=== PATIENT | male | born 1975 | race African-American/Black ===

== ENCOUNTER → 2018-03-25 | Outpatient (CLI) | payer OTHER ==
[2015-08-31 07:59] VITALS: BP 120/76
[~2018-03-25] VITALS: Ht 162.6 cm; Wt 108.9 kg
[~2018-03-25] MED LIST: CELE100C PO; GABA-586 PO; NORMAL SALINE IV ONE; SINCALIDE IV ONE
--- NOTE | 2018-03-25 15:47 | RAD ---
HEPATOBILIARY SCAN WITH EJECTION FRACTION 03/25/2018 3:44 PM History: upper Abd pain x 4 months 5.5mci 99mTc Choletec 2.18mCg Kinevac for EF Procedure: Serial static images are obtained of the liver and biliary system in the frontal projection following IV administration of 5.5 mCi of Technetium 99m Choletec. After filling of the gallbladder, 2.18 mcg of sincalide were infused over 30 minutes and dynamic imaging continued over this period. The gallbladder ejection fraction was calculated. Findings: There is prompt hepatic clearance of tracer from the blood pool. There is homogeneous distribution throughout the liver. The gallbladder ejection fraction measures 55% (normal gallbladder EF is 35% or greater). IMPRESSION: 1. The cystic duct and common bile duct are patent. Negative for acute cholecystitis. 2. The gallbladder ejection fraction is within normal limits Electronically signed by: Barry Carias MD (03/25/2018 3:44 PM) [facility]
== END | disposition home or self-care (01) ==
LOC: NM 07:55
PROVIDERS: ATTEND Internal Medicine Gastroenterology
DX: R10.13 Epigastric pain (principal)
CPT/HCPCS: 78226; 96374; 96375; A9537; J2805

== ENCOUNTER 2019-01-08 23:52 | Emergency (ER) | payer OTHER ==
[~2019-01-08] VITALS: Ht 162.6 cm; Wt 115.0 kg
[~2019-01-08 23:52] MED LIST changes: -NORMAL SALINE IV ONE; -SINCALIDE IV ONE
--- NOTE | 2019-01-08 23:58 | ED.ADGEN ---
Past History Past Medical History: Arthritis, Other Past Surgical History: Other Alcohol Use: None Drug Use: None Adult General Chief Complaint Chief Complaint ".. The pain.. It mariya started yesterday.. but it been in my neck, into my Lt Trapezius.. shoulder and down into my Lt arm.. 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 Pain is somewhat neuropathic. Patient denies any neck injury. 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 No recent travel. Was in [place] approximately 6 weeks ago. Patient denies any prior cardiac history. Patient does not smoke. No history of Immunosuppression. Patient tried [id number] and did take his gabapentin attempts to relieve the pain. Patient does have a history of chronic low back pain. 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 Review of Systems Review of Systems Constitutional: Denies fever or chills [] Eyes: Denies change in visual acuity, redness, or eye pain [] HENT: Denies nasal congestion or sore throat []complains of neck pain Respiratory: Denies cough or shortness of breath [] Cardiovascular: No additional information not addressed in HPI [] GI: Denies abdominal pain, nausea, vomiting, bloody stools or diarrhea [] : Denies dysuria or hematuria [] Musculoskeletal: History of low back pain or joint pain [. Patient]complains of left shoulder and arm pain Integument: Denies rash or skin lesions [] Neurologic: Denies headache, focal weakness or sensory changes [] Endocrine: Denies polyuria or polydipsia [] All other systems were reviewed and found to be within normal limits, except as documented in this note. Family History Family History Noncontributory to presentation Current Medications Current Medications Current Medications Medications (Trade) Dose Ordered Sig/Hoa Start Time Stop Time Status Last Admin Dose Admin Ketorolac Tromethamine (Toradol 30mg Vial) 30 mg 1X ONCE 01/09/19 00:30 01/09/19 00:32 DC 01/09/19 00:47 30 MG Lactated Ringer's 1,000 ml @ 1,000 mls/hr Q1H 01/09/19 00:30 01/09/19 01:29 DC 01/09/19 00:47 1,000 MLS/HR Methylprednisolone Acetate (DEPO-Medrol IM) 40 mg 1X ONCE 01/09/19 00:30 01/09/19 00:32 DC 01/09/19 00:48 40 MG Morphine Sulfate (Morphine 10mg Syringe) 10 mg 1X ONCE 01/09/19 02:30 01/09/19 02:31 DC 01/09/19 02:19 10 MG Orphenadrine Citrate (Norflex) 60 mg 1X ONCE 01/09/19 00:30 01/09/19 00:32 DC 01/09/19 00:47 60 MG See nursing for home meds Allergies Allergies Allergies Coded Allergies Type Severity Reaction Last Updated Verified propoxyphene Allergy Severe Rash 01/09/19 Yes Physical Exam Physical Exam Constitutional: Well developed, well nourished, moderately acute distress, non- toxic appearance. [] HENT: Normocephalic, atraumatic, bilateral external ears normal, oropharynx moist, no oral exudates, nose normal. [] Eyes: PERRLA, EOMI, conjunctiva normal, no discharge. [] Neck: Normal range of motion, no tenderness, supple, no stridor. [] Has appreciable trapezius spasm on left. Cardiovascular: Bradycardia Heart rate regular rhythm, no murmur [] Lungs & Thorax: Bilateral breath sounds equal apex auscultation [] Abdomen: Bowel sounds normal, soft, no tenderness, no masses, no pulsatile masses. [] Skin: Warm, dry, no erythema, no rash. [] Back: No tenderness, no CVA tenderness. [] Extremities: No tenderness, no cyanosis, no clubbing, ROM intact, no edema. [] No cording appreciated. Neurologic: Alert and oriented X 3, normal motor function, normal sensory function, no focal deficits noted. [] Psychologic: Affect normal, judgement normal, mood normal. [] Current Patient Data Vital Signs Vital Signs Date Time Temp Pulse Resp B/P (MAP) Pulse Ox O2 Delivery O2 Flow Rate FiO2 01/09/19 02:15 98.4 68 16 135/80 (98) 97 Room Air Lab Results Laboratory Tests Test 01/09/19 00:45 01/09/19 02:00 White Blood Count 5.9 x10^3/uL (4.0-11.0) Red Blood Count 5.13 x10^6/uL (4.30-5.70) Hemoglobin 16.3 g/dL (13.0-17.5) Hematocrit 47.7 % (39.0-53.0) Mean Corpuscular Volume 93 fL (79-100) Mean Corpuscular Hemoglobin 32 pg (25-35) Mean Corpuscular Hemoglobin Concent 34 g/dL (31-37) Red Cell Distribution Width 13.4 % (11.5-14.5) Platelet Count 229 x10^3/uL (140-400) Neutrophils (%) (Auto) 37 % (31-73) Lymphocytes (%) (Auto) 50 % (24-48) H Monocytes (%) (Auto) 11 % (0-9) H Eosinophils (%) (Auto) 2 % (0-3) Basophils (%) (Auto) 1 % (0-3) Neutrophils # (Auto) 2.2 x10^3uL (1.8-7.7) Lymphocytes # (Auto) 2.9 x10^3/uL (1.0-4.8) Monocytes # (Auto) 0.6 x10^3/uL (0.0-1.1) Eosinophils # (Auto) 0.1 x10^3/uL (0.0-0.7) Basophils # (Auto) 0.0 x10^3/uL (0.0-0.2) Erythrocyte Sedimentation Rate 1 (0-15) Prothrombin Time 9.7 SEC (9.4-11.4) Prothrombin Time INR 1.0 (0.9-1.1) PTT 26 SEC (23-33) D-Dimer (Kamala) < 0.19 mg/L (0.00-0.50) Sodium Level 140 mmol/L (136-145) Potassium Level 3.9 mmol/L (3.5-5.1) Chloride Level 105 mmol/L (98-107) Carbon Dioxide Level 28 mmol/L (21-32) Anion Gap 7 (6-14) Blood Urea Nitrogen 15 mg/dL (8-26) Creatinine 1.1 mg/dL (0.7-1.3) Estimated GFR (Cockcroft-Gault) 87.6 Glucose Level 104 mg/dL (70-99) H Calcium Level 8.9 mg/dL (8.5-10.1) Magnesium Level 1.7 mg/dL (1.8-2.4) L Total Bilirubin 0.4 mg/dL (0.2-1.0) Direct Bilirubin 0.1 mg/dL (0.0-0.2) Aspartate Amino Transferase (AST) 26 U/L (15-37) Alanine Aminotransferase (ALT) 53 U/L (16-63) Alkaline Phosphatase 86 U/L (46-116) Creatine Kinase 351 U/L (39-308) H Troponin I Quantitative < 0.017 ng/mL (0-0.055) EX-Tez-O-Type Natriuretic Peptide < 5 pg/mL (0-124) Total Protein 7.5 g/dL (6.4-8.2) Albumin 3.6 g/dL (3.4-5.0) Urine Collection Type Unknown Urine Color Yellow Urine Clarity Clear Urine pH 6.5 Urine Specific Sublimity 1.020 Urine Protein Neg (NEG-TRACE) Urine Glucose (UA) Neg mg/dL (NEG) Urine Ketones (Stick) Neg mg/dL (NEG) Urine Blood Neg (NEG) Urine Nitrite Neg (NEG) Urine Bilirubin Neg (NEG) Urine Urobilinogen Dipstick 0.2 mg/dL (0.2 mg/dL) Urine Leukocyte Esterase Neg (NEG) Urine RBC 0 /HPF (0-2) Urine WBC Occ /HPF (0-4) Urine Squamous Epithelial Cells Few /LPF Urine Bacteria 0 /HPF (0-FEW) EKG EKG My interpretation of EKG shows a sinus bradycardia rhythm at 58 bpm[] has slightly prolonged CA interval. Some nonspecific anterior lateral changes. No findings acute STEMI with contralateral changes. Radiology/Procedures Radiology/Procedures My interpretation chest x-ray shows borderline cardiac silhouette. There is some hilar fullness. Atelectasis.[][address] [address] IMAGING REPORT Signed PATIENT: SAMEERA WOODY ACCOUNT: [id number] : 1975 LOCATION: ER AGE: 43 SEX: M EXAM STATUS: REG ER ORD. PHYSICIAN: VIRAL SPEARS MD REASON: Neuropathic like pain, neck , Lt. shoulder and arm PROCEDURE: CT CERVICAL SPINE WO CONTRAST PQRS Compliance Statement: One or more of the following individualized dose reduction techniques were utilized for this examination: 1. Automated exposure control 2. Adjustment of the mA and/or kV according to patient size 3. Use of iterative reconstruction technique CT CERVICAL SPINE WITHOUT CONTRAST Clinical Indication: Neuropathic-like pain, neck, left shoulder and arm. Comparison: None. Technique: Noncontrast helical CT of the cervical spine was performed. Axial, sagittal, and coronal reconstructions were obtained. Findings: There is no evidence of acute fracture or acute malalignment. There are no perched or jumped facet joints. The vertebral body height and alignment are maintained. Straightening of normal cervical lordosis may be positional or due to muscle spasm. There is degenerative endplate spurring of C4/C5, C5/C6, C6/C7. Mild disc space narrowing at these levels. The craniovertebral junction is intact. No high-grade central canal stenosis is identified. Neural foraminal narrowing bilaterally at C6/C7 is probably moderate. Visualized soft tissues of the neck demonstrate no significant abnormalities. The visualized lung apices are clear. IMPRESSION: No acute fracture or malalignment. Electronically signed by: Frandy Triana MD (01/09/2019 1:35 AM) [facility] Course & Med Decision Making Course & Med Decision Making Pertinent Labs and Imaging studies reviewed. (See chart for details) [] Final Impression Final Impression 1. Cervical neuropathy[] 2. Elevate Lymph and O'Brien 50/11 3. Cervical Muscle spasms 4. DJD Dragon Disclaimer Dragon Disclaimer This electronic medical record was generated, in whole or in part, using a voice recognition dictation system. Discharge Summary Visit Information Final Diagnosis Problems Medical Problems: (1) Cervical neuropathy Status: Acute Brief Hospital Course Allergies Allergies Coded Allergies Type Severity Reaction Last Updated Verified propoxyphene Allergy Severe Rash 01/09/19 Yes Vital Signs Vital Signs Date Time Temp Pulse Resp B/P (MAP) Pulse Ox O2 Delivery O2 Flow Rate FiO2 01/09/19 02:15 98.4 68 16 135/80 (98) 97 Room Air Lab Results Laboratory Tests Test 01/09/19 00:45 01/09/19 02:00 White Blood Count 5.9 x10^3/uL (4.0-11.0) Red Blood Count 5.13 x10^6/uL (4.30-5.70) Hemoglobin 16.3 g/dL (13.0-17.5) Hematocrit 47.7 % (39.0-53.0) Mean Corpuscular Volume 93 fL (79-100) Mean Corpuscular Hemoglobin 32 pg (25-35) Mean Corpuscular Hemoglobin Concent 34 g/dL (31-37) Red Cell Distribution Width 13.4 % (11.5-14.5) Platelet Count 229 x10^3/uL (140-400) Neutrophils (%) (Auto) 37 % (31-73) Lymphocytes (%) (Auto) 50 % (24-48) Monocytes (%) (Auto) 11 % (0-9) Eosinophils (%) (Auto) 2 % (0-3) Basophils (%) (Auto) 1 % (0-3) Neutrophils # (Auto) 2.2 x10^3uL (1.8-7.7) Lymphocytes # (Auto) 2.9 x10^3/uL (1.0-4.8) Monocytes # (Auto) 0.6 x10^3/uL (0.0-1.1) Eosinophils # (Auto) 0.1 x10^3/uL (0.0-0.7) Basophils # (Auto) 0.0 x10^3/uL (0.0-0.2) Erythrocyte Sedimentation Rate 1 (0-15) Prothrombin Time 9.7 SEC (9.4-11.4) Prothromb Time International Ratio 1.0 (0.9-1.1) Activated Partial Thromboplast Time 26 SEC (23-33) D-Dimer (Kamala) < 0.19 mg/L (0.00-0.50) Sodium Level 140 mmol/L (136-145) Potassium Level 3.9 mmol/L (3.5-5.1) Chloride Level 105 mmol/L (98-107) Carbon Dioxide Level 28 mmol/L (21-32) Anion Gap 7 (6-14) Blood Urea Nitrogen 15 mg/dL (8-26) Creatinine 1.1 mg/dL (0.7-1.3) Estimated GFR (Cockcroft-Gault) 87.6 Glucose Level 104 mg/dL (70-99) Calcium Level 8.9 mg/dL (8.5-10.1) Magnesium Level 1.7 mg/dL (1.8-2.4) Total Bilirubin 0.4 mg/dL (0.2-1.0) Direct Bilirubin 0.1 mg/dL (0.0-0.2) Aspartate Amino Transf (AST/SGOT) 26 U/L (15-37) Alanine Aminotransferase (ALT/SGPT) 53 U/L (16-63) Alkaline Phosphatase 86 U/L (46-116) Creatine Kinase 351 U/L (39-308) Troponin I Quantitative < 0.017 ng/mL (0-0.055) OQ-Cfg-C-Type Natriuretic Peptide < 5 pg/mL (0-124) Total Protein 7.5 g/dL (6.4-8.2) Albumin 3.6 g/dL (3.4-5.0) Urine Collection Type Unknown Urine Color Yellow Urine Clarity Clear Urine pH 6.5 Urine Specific Sublimity 1.020 Urine Protein Neg (NEG-TRACE) Urine Glucose (UA) Neg mg/dL (NEG) Urine Ketones (Stick) Neg mg/dL (NEG) Urine Blood Neg (NEG) Urine Nitrite Neg (NEG) Urine Bilirubin Neg (NEG) Urine Urobilinogen Dipstick 0.2 mg/dL (0.2 mg/dL) Urine Leukocyte Esterase Neg (NEG) Urine RBC 0 /HPF (0-2) Urine WBC Occ /HPF (0-4) Urine Squamous Epithelial Cells Few /LPF Urine Bacteria 0 /HPF (0-FEW) Brief Hospital Course Mr. Woody is a 43 old male who presented with cervical neuralgia. Discharge Information Condition at Discharge: Improved, Stable Disposition/Orders: D/C to Home Dischare Medications Current Medications Lactated Ringer's 1,000 ml @ 1,000 mls/hr Q1H IV Last administered on 01/09/19at 00:47; Admin Dose 1,000 MLS/HR; Start 01/09/19 at 00:30; Stop 01/09/19 at 01:29; Status DC Orphenadrine Citrate (Norflex) 60 mg 1X ONCE IV Last administered on 01/09/19at 00:47; Admin Dose 60 MG; Start 01/09/19 at 00:30; Stop 01/09/19 at 00:32; Status DC Ketorolac Tromethamine (Toradol 30mg Vial) 30 mg 1X ONCE IV Last administered on 01/09/19at 00:47; Admin Dose 30 MG; Start 01/09/19 at 00:30; Stop 01/09/19 at 00:32; Status DC Methylprednisolone Acetate (DEPO-Medrol IM) 40 mg 1X ONCE IM Last administered on 01/09/19at 00:48; Admin Dose 40 MG; Start 01/09/19 at 00:30; Stop 01/09/19 at 00:32; Status DC Morphine Sulfate (Morphine 10mg Syringe) 10 mg 1X ONCE SQ Last administered on 01/09/19at 02:19; Admin Dose 10 MG; Start 01/09/19 at 02:30; Stop 01/09/19 at 02:31; Status DC Active Scripts Active Cyclobenzaprine Hcl 10 Mg Tablet 10 Mg PO TIDPRN Hydrocodone-Ibuprofen 7.5-200 (Hydrocodone/Ibuprofen) 1 Each Tablet 1 Tab PO PRN Q6HRS PRN Reported Valtrex (Valacyclovir Hcl) 500 Mg Tablet 500 Mg PO PRN Celebrex (Celecoxib) 100 Mg Capsule 1 Cap PO BID PRN Neurontin (Gabapentin) 300 Mg Capsule 1 Cap PO TID PRN Dragon Disclaimer This chart was dictated in whole or in part using Voice Recognition software in a busy, high-work load, and often noisy Emergency Department environment. It may contain unintended and wholly unrecognized errors or omissions. VIRAL SPEARS MD January 08, 2019 23:58
[2019-01-09] MEDS ORDERED: VALA500T5 PO (00:09)
--- NOTE | 2019-01-09 00:25 | EKG ---
[address] [address] Test Date: 2019-01-09 Test Time: 00:25:25 Pat Name: SAMEERA OCASIO Department: Room: Gender: M Lay Out Inspector: : 1975 Requested By: VIRAL SPEASR Order Number: [id number] Reading MD: Pawel Huber Measurements Intervals [place] Rate: 58 P: 36 FL: 240 QRS: 39 QRSD: 88 T: 57 QT: 382 QTc: 378 Interpretive Statements SINUS RHYTHM PROLONGED FL INTERVAL Electronically Signed On 02-03-2019 11:36:25 CDT by Pawel Huber
[2019-01-09] MEDS ORDERED: IV RINGERS SOLUTION,LACTATED 1,000 ML IV SCH (00:30)
[2019-01-09] MEDS ORDERED: ORPHENADRINE CITRATE 60 MG/2 ML VIAL. IV ONE (00:30)
[2019-01-09] MEDS ORDERED: methylPREDNISolone ACETATE 40 MG/ML VIAL. IM ONE (00:30)
[2019-01-09] MEDS ORDERED: KETOROLAC 30 MG/ML VIAL. IV ONE (00:30)
[2019-01-09 01:27] LABS: BASO % 1 % (0-3); EOS # 0.1 x10^3/uL (0.0-0.7); EOS % 2 % (0-3); HEMATOCRIT 47.7 % (39.0-53.0); HEMOGLOBIN 16.3 g/dL (13.0-17.5); LYMPH # 2.9 x10^3/uL (1.0-4.8); LYMPH % 50 % (24-48); MEAN CORPUSCULAR HEMOGLOBIN 32 pg (25-35); MEAN CORPUSCULAR HGB CONC 34 g/dL (31-37); MEAN CORPUSCULAR VOLUME 93 fL (79-100); MONO # 0.6 x10^3/uL (0.0-1.1); MONO % 11 % (0-9); NEUT # 2.2 x10^3uL (1.8-7.7); NEUT % 37 % (31-73); PLATELET COUNT 229 x10^3/uL (140-400); RED BLOOD COUNT 5.13 x10^6/uL (4.30-5.70); RED CELL DISTRIBUTION WIDTH 13.4 % (11.5-14.5); WHITE BLOOD COUNT 5.9 x10^3/uL (4.0-11.0)
--- NOTE | 2019-01-09 01:38 | RAD ---
RS Compliance Statement: One or more of the following individualized dose reduction techniques were utilized for this examination: 1. Automated exposure control 2. Adjustment of the mA and/or kV according to patient size 3. Use of iterative reconstruction technique CT CERVICAL SPINE WITHOUT CONTRAST Clinical Indication: Neuropathic-like pain, neck, left shoulder and arm. Comparison: None. Technique: Noncontrast helical CT of the cervical spine was performed. Axial, sagittal, and coronal reconstructions were obtained. Findings: There is no evidence of acute fracture or acute malalignment. There are no perched or jumped facet joints. The vertebral body height and alignment are maintained. Straightening of normal cervical lordosis may be positional or due to muscle spasm. There is degenerative endplate spurring of C4/C5, C5/C6, C6/C7. Mild disc space narrowing at these levels. The craniovertebral junction is intact. No high-grade central canal stenosis is identified. Neural foraminal narrowing bilaterally at C6/C7 is probably moderate. Visualized soft tissues of the neck demonstrate no significant abnormalities. The visualized lung apices are clear. IMPRESSION: No acute fracture or malalignment. Electronically signed by: Frandy Triana MD (01/09/2019 1:35 AM) [facility]
[2019-01-09 01:46] LABS: ALBUMIN 3.6 g/dL (3.4-5.0); ALK PHOS 86 U/L (46-116); ALT (SGPT) 53 U/L (16-63); ANION GAP 7 (6-14); AST (SGOT) 26 U/L (15-37); BLOOD UREA NITROGEN 15 mg/dL (8-26); CALCIUM 8.9 mg/dL (8.5-10.1); CARBON DIOXIDE 28 mmol/L (21-32); CHLORIDE 105 mmol/L (98-107); CREATININE 1.1 mg/dL (0.7-1.3); DIRECT BILIRUBIN 0.1 mg/dL (0.0-0.2); GFR 87.6; GLUCOSE 104 mg/dL (70-99); MAGNESIUM 1.7 mg/dL (1.8-2.4); POTASSIUM 3.9 mmol/L (3.5-5.1); SODIUM 140 mmol/L (136-145); TOTAL BILIRUBIN 0.4 mg/dL (0.2-1.0); TOTAL PROTEIN 7.5 g/dL (6.4-8.2)
[2019-01-09] MEDS ORDERED: HYDR-1179 PO (01:50)
[2019-01-09] MEDS ORDERED: CYCL-331 PO (01:50)
[2019-01-09 02:15] VITALS: BP 135/80
[2019-01-09 02:16] LABS: SEDIMENTATION RATE 1 (0-15)
[2019-01-09] MEDS ORDERED: MORPHINE SULFATE 10 MG/ML SYRINGE. SQ ONE (02:30)
[2019-01-09 02:52] LABS: BACTERIA,URINE 0 /HPF (0-FEW); BILIRUBIN,URINE NEG (NEG); CLARITY,URINE CLEAR; COLOR,URINE YELLOW; GLUCOSE,URINE NEG (NEG); NITRITE,URINE NEG (NEG); RBC,URINE 0 /HPF (0-2); UROBILINOGEN,URINE 0.2 mg/dL (0.2 mg/dL); WBC,URINE OCC /HPF (0-4)
[2019-01-09 02:53] LABS: SQUAMOUS EPITHELIAL CELL,UR FEW /LPF
--- NOTE | 2019-01-09 08:32 | RAD ---
Chest, PA and Lateral: Technique: PA and lateral views of the chest were obtained. History: Chest pain. Comparison: None. Findings: The heart and pulmonary vasculature appear within normal limits. The lungs are clear. The pleural margins are clear. Impression: No acute chest process is seen. Electronically signed by: Matt Vidales MD (01/09/2019 8:29 AM) [facility]
[2019-01-09 13:06] LABS: THYROID STIM HORMONE (TSH) 2.471 uIU/mL (0.358-3.740)
== END 2019-01-09 02:15 | disposition home or self-care (01) ==
LOC: ER 23:56
DX: G54.2 Cervical root disorders, not elsewhere classified (principal); M62.838 Other muscle spasm; M47.892 Other spondylosis, cervical region; D72.820 Lymphocytosis (symptomatic); D72.821 Monocytosis (symptomatic); G89.29 Other chronic pain; M54.5 Low back pain; Z88.8 Allergy status to other drugs, medicaments and biological substances
CPT/HCPCS: 36415; 71046; 72125; 80048; 80061; 80076; 81001; 82550; 83735; 83880; 84443; 84484; 85025; 85379; 85610; 85651; 85730; 93005; 96361; 96372; 96374; 96375; 99285; J1030; J1885; J2270; J2360; J7120

== ENCOUNTER 2019-04-18 22:02 | Emergency (ER) | payer OTHER ==
[~2019-04-18] VITALS: Ht 162.6 cm; Wt 112.4 kg
[2019-04-18 22:02] VITALS: BP 155/94
[~2019-04-18 22:02] MED LIST changes: +CYCL-331 PO; +HYDR-1179 PO; +VALA500T5 PO
[2019-04-18] MEDS ORDERED: CLIN300C8 PO (22:40)
--- NOTE | 2019-04-18 22:40 | PHYS DOC ---
Past History Past Medical History: Arthritis, Other Past Surgical History: Other Alcohol Use: None Drug Use: None Adult General Chief Complaint Chief Complaint: SKIN RASH/ABSCESS HPI HPI 43-year-old male presents with concern for skin infection of his face. The patient used a conte dye 4 days ago and began have some irritation on the right side of his face. Yesterday he thought he noticed a small nodule on the right side. He has also had some skin peeling pruritus on that side. There is a general burning in the area of his scaling skin. Today, the nodule has increased significantly in size. There is a 4 cm x 3 cm area of his right cheek is swollen. It is tender to the touch. Patient denies fever or chills. Review of Systems Review of Systems Constitutional: Denies fever or chills [] Eyes: Denies change in visual acuity, redness, or eye pain [] HENT: Denies nasal congestion or sore throat [] Respiratory: Denies cough or shortness of breath [] Cardiovascular: No additional information not addressed in HPI [] GI: Denies abdominal pain, nausea, vomiting, bloody stools or diarrhea [] : Denies dysuria or hematuria [] Musculoskeletal: Denies back pain or joint pain [] Integument: Mass in the right cheek[] Neurologic: Denies headache, focal weakness or sensory changes [] Endocrine: Denies polyuria or polydipsia [] All other systems were reviewed and found to be within normal limits, except as documented in this note. Allergies Allergies Allergies Coded Allergies Type Severity Reaction Last Updated Verified propoxyphene Allergy Severe Rash 01/09/19 Yes Physical Exam Physical Exam Constitutional: Well developed, well nourished, no acute distress, non-toxic appearance. [] HENT: Normocephalic, atraumatic, bilateral external ears normal, oropharynx moist, no oral exudates, nose normal. [] Eyes: PERRLA, EOMI, conjunctiva normal, no discharge. [] Neck: Normal range of motion, no tenderness, supple, no stridor. [] Cardiovascular:Heart rate regular rhythm, no murmur [] Lungs & Thorax: Bilateral breath sounds clear to auscultation [] Abdomen: Bowel sounds normal, soft, no tenderness, no masses, no pulsatile masses. [] Skin: Scaling skin within the right ear. 4 cm x 6 cm erythematous area without fluctuance center[] Back: No tenderness, no CVA tenderness. [] Extremities: No tenderness, no cyanosis, no clubbing, ROM intact, no edema. [] Neurologic: Alert and oriented X 3, normal motor function, normal sensory function, no focal deficits noted. [] Psychologic: Affect normal, judgement normal, mood normal. [] EKG EKG [] Radiology/Procedures Radiology/Procedures [] Course & Med Decision Making Course & Med Decision Making Pertinent Labs and Imaging studies reviewed. (See chart for details) The patient appears to have cellulitis of his face. I do not palpate a discrete abscess to drain. We'll place him on clindamycin as well as Mupirocin topical. He is stable for discharge at this time. [] Dragon Disclaimer Dragon Disclaimer This electronic medical record was generated, in whole or in part, using a voice recognition dictation system. Departure Departure: Impression: Primary Impression: Cellulitis of face Disposition: HOME, SELF-CARE Condition: STABLE Referrals: PCP,GWENDOLYN (PCP) Patient Instructions: Cellulitis, Aveq-dh-Lwgp Scripts Clindamycin Hcl (CLINDAMYCIN HCL) 300 Mg Capsule 1 CAP PO TID for facial cellulitis, #21 CAP Prov: MONSERRAT JONES DO 04/18/19 MONSERRAT JONES DO Apr 18, 2019 22:40
[2019-04-18] MEDS ORDERED: MUPI22OI2 TP (22:41)
[2019-04-18] MEDS ORDERED: CLINDAMYCIN HCL 150 MG CAPSULE PO ONE (23:00)
== END 2019-04-18 22:46 | disposition home or self-care (01) ==
LOC: ER 22:02
DX: L03.211 Cellulitis of face (principal); M19.90 Unspecified osteoarthritis, unspecified site; Z88.8 Allergy status to other drugs, medicaments and biological substances
CPT/HCPCS: 99283

== ENCOUNTER 2019-11-13 22:58 | Emergency (ER) | payer OTHER ==
[~2019-11-13] VITALS: Ht 152.4 cm; Wt 115.5 kg
[~2019-11-13 22:58] MED LIST changes: +CLIN300C8 PO; +MUPI22OI2 TP
[2019-11-13 23:00] VITALS: BP 152/91
--- NOTE | 2019-11-13 23:32 | PHYS DOC ---
Past History Past Medical History: Other Additional Past Medical Histor: bugling disc L5-S1 Past Surgical History: Other Additional Past Surgical Histo: L knee, R wrist, R shoulder, R ankle, umbilical hernia repair Alcohol Use: None Drug Use: None Adult General Chief Complaint Chief Complaint: CHEST PAIN HPI HPI 43-year-old male presents with chest pain. Patient describes the pain as a throbbing sensation in the upper left abdomen/lower chest that radiates through to his back. He has had this pain intermittently for one month. It partially improves with antacid. He comes in tonight because it just go away is persistent. He has not noticed any pattern with specific foods. The pain is worse at rest, not with exertion. He denies shortness of breath, diaphoresis, nausea, or vomiting. Denies fever or chills. Review of Systems Review of Systems Constitutional: Denies fever or chills [] Eyes: Denies change in visual acuity, redness, or eye pain [] HENT: Denies nasal congestion or sore throat [] Respiratory: Denies cough or shortness of breath [] Cardiovascular: No additional information not addressed in HPI [] GI: Left upper quadrant abdominal pain. Denies nausea, vomiting, bloody stools or diarrhea [] : Denies dysuria or hematuria [] Musculoskeletal: Denies back pain or joint pain [] Integument: Denies rash or skin lesions [] Neurologic: Denies headache, focal weakness or sensory changes [] Endocrine: Denies polyuria or polydipsia [] All other systems were reviewed and found to be within normal limits, except as documented in this note. Current Medications Current Medications Current Medications Medications (Trade) Dose Ordered Sig/Hoa Start Time Stop Time Status Last Admin Dose Admin Aspirin (Children'S Aspirin) 324 mg 1X ONCE 11/13/19 23:45 11/13/19 23:20 DC Multi-Ingredient Mouthwash/Gargle (Gi Cocktail) 20 ml 1X ONCE 11/13/19 23:45 11/13/19 23:46 Allergies Allergies Allergies Coded Allergies Type Severity Reaction Last Updated Verified propoxyphene Allergy Severe Rash 01/09/19 Yes Physical Exam Physical Exam Constitutional: Well developed, morbidly obese, well nourished, no acute distress, non-toxic appearance. [] HENT: Normocephalic, atraumatic, bilateral external ears normal, oropharynx moist, no oral exudates, nose normal. [] Eyes: PERRLA, EOMI, conjunctiva normal, no discharge. [] Neck: Normal range of motion, no tenderness, supple, no stridor. [] Cardiovascular: Heart rate regular rhythm, no murmur [] Lungs & Thorax: Bilateral breath sounds clear to auscultation [] Abdomen: Bowel sounds normal, soft, no tenderness, no masses, no pulsatile masses. [] Skin: Warm, dry, no erythema, no rash. [] Back: No tenderness, no CVA tenderness. [] Extremities: No tenderness, no cyanosis, no clubbing, ROM intact, no edema. [] Neurologic: Alert and oriented X 3, normal motor function, normal sensory function, no focal deficits noted. [] Psychologic: Affect normal, judgement normal, mood normal. [] Current Patient Data Vital Signs Vital Signs Date Time Temp Pulse Resp B/P (MAP) Pulse Ox O2 Delivery O2 Flow Rate FiO2 11/13/19 23:00 97.8 73 18 152/91 (111) 96 Room Air EKG EKG Sinus rhythm, rate 62, normal axis, no ST elevation or depression.[] Radiology/Procedures Radiology/Procedures [] Impressions: Chest AP portable at 2338: Reason for examination: Left-sided chest pain for couple of weeks. Comparison is made to previous study dated 01/09/2019. The heart size is normal. Mediastinum is unremarkable. Lung lynn are clear. No acute bony abnormalities are seen. Impression: No acute cardiopulmonary disease. Electronically signed by: Maria C Cortez MD (11/13/2019 11:57 PM) [id number] DICTATED AND SIGNED BY: MARIA C CORTEZ MD DATE: 11/13/19 8317 CC: MONSERRAT JONES DO; PCP,UNKNOWN ~ Course & Med Decision Making Course & Med Decision Making Pertinent Labs and Imaging studies reviewed. (See chart for details) The patient's EKG is unremarkable. His chest x-rays negative for acute findings. His labs are unremarkable. His troponin is negative. The patient was given a GI cocktail and 40 mg Protonix. His symptoms seem most likely to be related to GERD. I have recommended that he try 14 days of a proton pump inhibitor. He is stable for discharge at this time. He'll follow-up with his primary care physician. [] Dragon Disclaimer Dragon Disclaimer This electronic medical record was generated, in whole or in part, using a voice recognition dictation system. The HEART Score for CP Pts HEART Score for Chest Pain: HEART Score for Chest Pain Response (Comments) Value History Slighlty/Non-Suspicious 0 ECG Normal 0 Age >45 - < 65 1 Risk Factors 1 or 2 Risk Factors 1 Troponin < Normal Limit 0 Total 2 Risk Factors: Risk Factors: DM, Current or recent (<one month) smoker, HTN, HLP, family hist ory of CAD, obesity. Risk Scores: Score 0 - 3: 2.5% MACE over next 6 weeks - Discharge Home Score 4 - 6: 20.3% MACE over next 6 weeks - Admit for Clinical Observation Score 7 - 10: 72.7% MACE over next 6 weeks - Early Invasive Strategies Departure Departure: Impression: Primary Impression: GERD (gastroesophageal reflux disease) Disposition: 01 HOME/RESIDENCE PRIOR TO ADM Condition: STABLE Referrals: PCP,UNKNOWN (PCP) MONSERRAT JONES DO Nov 13, 2019 23:32
--- NOTE | 2019-11-13 23:35 | EKG ---
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
[2019-11-13] MEDS ORDERED: PANTOPRAZOLE IV 40 MG VIAL. IVP ONE (23:45)
[2019-11-13] MEDS ORDERED: LIDO:MAALOX 1:1 20 ML SINGLE DOSE. PO ONE (23:45)
[2019-11-13] MEDS ORDERED: ASPIRIN 81 MG TAB.CHEW PO ONE (23:45)
--- NOTE | 2019-11-13 23:59 | RAD ---
Chest AP portable at 2338: Reason for examination: Left-sided chest pain for couple of weeks. Comparison is made to previous study dated 01/09/2019. The heart size is normal. Mediastinum is unremarkable. Lung lynn are clear. No acute bony abnormalities are seen. Impression: No acute cardiopulmonary disease. Electronically signed by: Maria C Fabian MD (11/13/2019 11:57 PM) [id number]
[2019-11-14] LABS: BASO % 1 % (0-3); EOS # 0.1 x10^3/uL (0.0-0.7); EOS % 2 % (0-3); HEMATOCRIT 49.2 % (39.0-53.0); HEMOGLOBIN 16.4 g/dL (13.0-17.5); LYMPH # 2.8 x10^3/uL (1.0-4.8); LYMPH % 43 % (24-48); MEAN CORPUSCULAR HEMOGLOBIN 32 pg (25-35); MEAN CORPUSCULAR HGB CONC 33 g/dL (31-37); MEAN CORPUSCULAR VOLUME 95 fL (79-100); MONO # 0.8 x10^3/uL (0.0-1.1); MONO % 13 % (0-9); NEUT # 2.7 x10^3uL (1.8-7.7); NEUT % 41 % (31-73); PLATELET COUNT 213 x10^3/uL (140-400); RED BLOOD COUNT 5.18 x10^6/uL (4.30-5.70); RED CELL DISTRIBUTION WIDTH 13.9 % (11.5-14.5); WHITE BLOOD COUNT 6.4 x10^3/uL (4.0-11.0)
[2019-11-14 00:07] LABS: ANION GAP 5 (6-14); BLOOD UREA NITROGEN 14 mg/dL (8-26); BUN/CREATININE RATIO 11 (6-20); CALCIUM 9.5 mg/dL (8.5-10.1); CARBON DIOXIDE 30 mmol/L (21-32); CHLORIDE 106 mmol/L (98-107); CREATININE 1.3 mg/dL (0.7-1.3); GFR 72.2; GLUCOSE 109 mg/dL (70-99); POTASSIUM 4.5 mmol/L (3.5-5.1); SODIUM 141 mmol/L (136-145)
[2019-11-14 00:20] LABS: ALBUMIN 3.8 g/dL (3.4-5.0); ALBUMIN/GLOBULIN RATIO 1.1 (1.0-1.7); ALK PHOS 96 U/L (46-116); ALT (SGPT) 45 U/L (16-63); AST (SGOT) 27 U/L (15-37); TOTAL BILIRUBIN 0.3 mg/dL (0.2-1.0); TOTAL PROTEIN 7.3 g/dL (6.4-8.2)
== END 2019-11-14 00:54 | disposition home or self-care (01) ==
LOC: ER 22:58
DX: K21.9 Gastro-esophageal reflux disease without esophagitis (principal); Z88.8 Allergy status to other drugs, medicaments and biological substances
CPT/HCPCS: 36415; 71045; 80053; 83880; 84484; 85025; 93005; 96374; 99285; C9113

== ENCOUNTER 2020-12-03 19:25 | Emergency (ER) | payer OTHER ==
[~2020-12-03] VITALS: Ht 152.4 cm; Wt 120.0 kg
[~2020-12-03 19:25] MED LIST changes: -CLIN300C8 PO; +CLIN300C9 PO
[2020-12-03 21:51] VITALS: BP 128/83
== END 2020-12-03 21:51 | disposition home or self-care (01) ==
LOC: ER 19:25
DX: R07.89 Other chest pain (principal); K21.9 Gastro-esophageal reflux disease without esophagitis; Z88.8 Allergy status to other drugs, medicaments and biological substances
CPT/HCPCS: 36415; 71045; 84484; 93005; 99285

== ENCOUNTER → 2021-05-01 | Outpatient (CLI) | payer OTHER ==
[~2021-05-01] MED LIST changes: +IOHEXOL 300 MG/ML 75 ML VIAL. IV ONE
--- NOTE | 2021-05-01 16:55 | RAD ---
CT THORAX WO/W INDICATION: PERSISTENT NON-CARDIAC CHEST PAIN Comparison: Chest radiograph 12/03/2020. TECHNIQUE: CT of the chest without and with the administration of intravenous contrast. PQRS compliance statement: One or more of the following individualized dose reduction techniques were utilized for this examinat ion: 1. Automated exposure control 2. Adjustment of the mA and/or kV according to patient size 3. Use of iterative reconstruction technique FINDINGS: Lungs and Airways: No pulmonary mass or consolidation. Right upper lobe 3 mm perifissural nodule (ser ies 8 image 39). No abnormality of the central airways. Pleura: The pleural spaces are normal. Heart and Mediastinum: The visualized thyroid is normal in size and attenuation. No axillary or supra clavicular lymphadenopathy. No mediastinal, hilar or retrocrural lymphadenopathy. The heart and peric ardium are within normal limits. Normal caliber thoracic aorta. No aortic intramural hematoma, dissec tion, aneurysm, or significant atherosclerosis. Abdomen: Limited images through the upper abdomen show no abnormality of the visualized organs. Bones and Soft Tissues: Degenerative changes of the spine. IMPRESSION: 1. No pulmonary mass or consolidation. No thoracic lymphadenopathy. 2. Right upper lobe indeterminate 3 mm nodule. Consider optional 12 month follow-up chest CT if patie nt has risk factors (history of malignancy, history of smoking, etc.). Electronically signed by: Roddy Guerrier MD (05/01/2021 4:53 PM) [id number]
== END ==
LOC: CT 15:20
PROVIDERS: ATTEND Family Medicine
DX: R91.1 Solitary pulmonary nodule (principal); M47.819 Spondylosis without myelopathy or radiculopathy, site unspecified; R07.9 Chest pain, unspecified
CPT/HCPCS: 71270; Q9967